=== PATIENT | male | born 1980 | race Two or more races ===

== ENCOUNTER 2016-09-27 20:43 | Emergency (ER) | payer SELFPAY ==
[~2016-09-27] VITALS: Ht 167.6 cm; Wt 81.6 kg
[2016-09-27 22:04] LABS: Basophils # (auto) 0 uL; Basophils % (auto) 0.3 % (0.0-2.0); CONDITION Y; Eosinophils # (auto) 0.1 uL; Eosinophils % (auto) 1.1 % (0.0-7.0); Hematocrit 43.1 % (41.0-53.0); Lymphocytes % (auto) 33.8 % (10.0-50.0); Mean Corpuscular Hemoglobin 30.6 pg (28.0-32.0); Mean Corpuscular Hgb Conc. 34.7 g/dL (32.0-36.0); Mean Corpuscular Volume 88.2 fL (80.0-100.0); Mean Platelet Volume 8.3 fL (7.4-10.4); Monocytes # (auto) 0.8 uL; Neutrophils % (auto) 55.8 % (37.0-80.0); Platelet Count (auto) 222 10^3/uL (140-450); Red Cell Distribution Width 12.9 % (11.6-16.0); White Blood Cell 8.9 10^3/uL (4.4-10.8)
[2016-09-27 22:28] LABS: BUN/Creatinine Ratio 14.9; Bilirubin, Total 0.4 mg/dL (0.2-1.0); Calcium 8.6 mg/dL (8.5-10.1); Potassium 3.6 mmol/L (3.5-5.1); Total Protein 8.2 g/dL (6.4-8.2)
[2016-09-27 23:35] VITALS: BP 150/79
== END 2016-09-28 00:38 | disposition home or self-care (01) ==
LOC: ER 20:48
DX: M79.89 Other specified soft tissue disorders (principal); J45.909 Unspecified asthma, uncomplicated
CPT/HCPCS: 36415; 73120; 80053; 85025

== ENCOUNTER 2018-11-11 15:34 | Emergency (ER) | payer MEDICAID, OTHER ==
[~2018-11-11] VITALS: Ht 160 cm; Wt 81.6 kg
[2018-11-11 18:33] VITALS: BP 121/73
[2018-11-11] MEDS ORDERED: methylPREDNISolone SOD SUCC 125 MG/2 ML VL IM ONE (19:15)
== END 2018-11-11 19:51 | disposition home or self-care (01) ==
LOC: ER 15:38
DX: H00.13 Chalazion right eye, unspecified eyelid (principal); T78.40XA Allergy, unspecified, initial encounter; X58.XXXA Exposure to other specified factors, initial encounter
CPT/HCPCS: 96372; 99283; J2930

== ENCOUNTER 2019-06-29 18:49 | Emergency (ER) | payer MEDICAID ==
[~2019-06-29] VITALS: Ht 172.7 cm; Wt 90.7 kg
[2019-06-29 18:59] VITALS: BP 141/90
[2019-06-29] MEDS ORDERED: IBUPROFEN 800 MG TAB PO ONE (21:30)
== END 2019-06-29 22:19 | disposition home or self-care (01) ==
LOC: ER 18:50
DX: S20.211A Contusion of right front wall of thorax, initial encounter (principal); J45.909 Unspecified asthma, uncomplicated; E11.9 Type 2 diabetes mellitus without complications; W11.XXXA Fall on and from ladder, initial encounter; Y93.89 Activity, other specified; Y92.89 Other specified places as the place of occurrence of the external cause; Y99.8 Other external cause status
CPT/HCPCS: 71101

== ENCOUNTER 2020-02-12 09:56 | Emergency (ER) | payer MEDICAID ==
[~2020-02-12] VITALS: Ht 170.2 cm; Wt 90.7 kg
[2020-02-12 15:07] VITALS: BP 123/65
== END 2020-02-12 15:07 | disposition home or self-care (01) ==
LOC: ER 09:56
DX: J18.9 Pneumonia, unspecified organism (principal); J06.9 Acute upper respiratory infection, unspecified; J45.909 Unspecified asthma, uncomplicated; E11.9 Type 2 diabetes mellitus without complications; Z20.828 Contact with and (suspected) exposure to other viral communicable diseases
CPT/HCPCS: 36415; 71045; 87426; 93005